=== PATIENT | male | born 1945 | race African-American/Black ===

== ENCOUNTER 2024-06-22 15:06 | Emergency (ER) | payer MEDICARE, MEDICAID ==
[~2024-06-22] VITALS: Ht 162.6 cm; Wt 60.8 kg
[2024-06-22 16:14] VITALS: BP 127/73; TEMP 97.9; O2SAT 99
== END 2024-06-22 16:14 | disposition left against medical advice (07) ==
LOC: ER 15:08
DX: Z00.00 Encounter for general adult medical examination without abnormal findings (principal); Z53.21 Procedure and treatment not carried out due to patient leaving prior to being seen by health care provider